=== PATIENT | male | born 1950 | race Caucasian/White ===

== ENCOUNTER 2018-01-11 14:44 | Emergency (ER) | payer OTHER ==
[2018-01-11 15:57] LABS: BASO # 0.1 10^3/uL (0.0-0.2); EOS # 0.3 10^3/uL (0.0-0.50); EOS % 3.5 % (0.0-3.0); HEMATOCRIT 41.1 % (42.0-52.0); IMMATURE GRANULOCYTE % 1.4 % (0-3.0); LYMPH % 27.2 % (24.0-44.0); MEAN CORPUSCULAR HEMOGLOBIN 31.5 pg (27.0-33.0); MEAN CORPUSCULAR HGB CONC 34.1 g/dl (32.0-36.5); MEAN CORPUSCULAR VOLUME 92.6 fl (80.0-96.0); MONO # 0.9 10^3/uL (0.0-0.8); MONO % 12.2 % (0.0-5.0); NEUTROPHILS # 3.9 10^3/uL (1.8-7.7); NEUTROPHILS % 54.7 % (36.0-66.0); PLATELET COUNT, AUTOMATED 255 10^3/uL (150-450); RED BLOOD COUNT 4.44 10^6/uL (4.30-6.10); RED CELL DISTRIBUTION WIDTH 11.9 % (11.5-14.5); WHITE BLOOD COUNT 7.2 10^3/uL (4.0-10.0)
[2018-01-11 16:11] LABS: ALBUMIN 3.9 GM/DL (3.2-5.2); ALBUMIN/GLOBULIN RATIO 0.98 (1.00-1.93); ALKALINE PHOSPHATASE 84 U/L (45-117); ALT/SGPT 36 U/L (12-78); ANION GAP 5 MEQ/L (8-16); AST/SGOT 19 U/L (7-37); BILIRUBIN,DIRECT < 0.1 MG/DL (0.0-0.2); BILIRUBIN,TOTAL 0.2 MG/DL (0.2-1.0); BLOOD UREA NITROGEN 23 MG/DL (7-18); CALCIUM LEVEL 8.9 MG/DL (8.8-10.2); CARBON DIOXIDE LEVEL 29 MEQ/L (21-32); CHLORIDE LEVEL 104 MEQ/L (98-107); CK-MB VALUE MASS < 1.0 NG/ML (<3.6); CPK CREATINE PHOSPHOKINASE 84 U/L (39-308); CREATININE FOR GFR 1.13 MG/DL (0.70-1.30); GLOMERULAR FILTRATION RATE > 60.0 (>49); GLUCOSE, FASTING 103 MG/DL (70-100); LIPASE 206 U/L (73-393); MB/CK RELATIVE INDEX 1.19 (< OR =4); POTASSIUM SERUM 4.2 MEQ/L (3.5-5.1); SODIUM LEVEL 138 MEQ/L (136-145); TOTAL PROTEIN 7.9 GM/DL (6.4-8.2); TROPONIN I < 0.02 NG/ML (< 0.10)
== END 2018-01-11 17:14 | disposition home or self-care (01) ==
LOC: M ED 14:44
DX: R07.89 Other chest pain (principal); I10 Essential (primary) hypertension; E78.5 Hyperlipidemia, unspecified; Z79.82 Long term (current) use of aspirin; Z79.899 Other long term (current) drug therapy
CPT/HCPCS: 71045

== ENCOUNTER 2019-12-08 09:12 | Emergency (ER) | payer MEDICARE, OTHER ==
[~2019-12-08] VITALS: Ht 185.4 cm; Wt 111.4 kg
[~2019-12-08 09:12] MED LIST: ASPI81TA85 PO; ASPI81TAEC PO; FINA5TAB2 PO; FISH1000 PO; FISH7.5C PO; LISI40TA PO; PANT40TA3 PO; PRAV10TA4 PO; PROT1TAB2 PO; SILD100T PO; VITA2000 PO; VITA200016 PO
[2019-12-08] MEDS ORDERED: PRAV40TA2 PO (09:33)
[2019-12-08] MEDS ORDERED: ONDANSETRON 4MG/2ML VIAL IV ONE (09:45)
[2019-12-08 10:09] LABS: BASO # 0.1 10^3/uL (0.0-0.2); BASO % 1.5 % (0.0-1.0); EOS # 0.2 10^3/uL (0.0-0.5); EOS % 3.8 % (0.0-3.0); HEMATOCRIT 40.8 % (42.0-52.0); HEMOGLOBIN 13.7 g/dl (13.5-17.5); LYMPH # 1.8 10^3/uL (1.5-5.0); LYMPH % 33.7 % (24.0-44.0); MEAN CORPUSCULAR HGB CONC 33.6 g/dl (32.0-36.5); MEAN CORPUSCULAR VOLUME 95.3 fl (80.0-96.0); MONO # 0.8 10^3/uL (0.0-0.8); MONO % 15.2 % (0.0-5.0); NEUTROPHILS # 2.4 10^3/uL (1.5-8.5); NEUTROPHILS % 44.9 % (36.0-66.0); PLATELET COUNT, AUTOMATED 248 10^3/uL (150-450); RED BLOOD COUNT 4.28 10^6/uL (4.30-6.10); WHITE BLOOD COUNT 5.3 10^3/uL (4.0-10.0)
[2019-12-08] MEDS: GASTROGRAFIN SOLUTION 30ML PO SCH ×2 (10:11→11:02)
[2019-12-08 10:20] LABS: INR 1.06; PROTHROMBIN TIME 13.5 SECONDS (11.8-14.0)
[2019-12-08 10:37] LABS: ALBUMIN 3.7 GM/DL (3.2-5.2); ALT/SGPT 46 U/L (12-78); BILIRUBIN,DIRECT 0.1 MG/DL (0.0-0.2); BILIRUBIN,TOTAL 0.5 MG/DL (0.2-1.0); BLOOD UREA NITROGEN 17 MG/DL (7-18); CALCIUM LEVEL 9.5 MG/DL (8.8-10.2); CARBON DIOXIDE LEVEL 29 MEQ/L (21-32); CHLORIDE LEVEL 104 MEQ/L (98-107); CREATININE FOR GFR 1.07 MG/DL (0.70-1.30); GLOMERULAR FILTRATION RATE > 60.0 (>49); GLUCOSE, FASTING 113 MG/DL (70-100); POTASSIUM SERUM 4.4 MEQ/L (3.5-5.1); SODIUM LEVEL 139 MEQ/L (136-145); TOTAL PROTEIN 7.3 GM/DL (6.4-8.2)
[2019-12-08 12:56] VITALS: BP 153/83
--- NOTE | 2019-12-08 14:33 | REP ---
CT ABDOMEN/PELVIS WITH ORAL CONTRAST: CT abdomen/pelvis performed following administrations of oral contrast material. IV contrast was not administered. Sagittal and coronal reconstruction images are performed. Minimal fibrotic changes are seen in the visualized lung bases. The liver demonstrates two hypodensities, probably representing cysts, one in the right lobe and one in the left lobe, measuring up to 1.9 cm in diameter. The patient has had a prior cholecystectomy. There is no biliary dilatation. There are calcified granulomas in the spleen. The adrenal glands are normal. No gross pancreatic abnormality or renal abnormality is seen. There is no renal or ureteral calculus and no hydroureteronephrosis. There is mild atherosclerotic calcification of the abdominal aorta with no aneurysm. There is no adenopathy. There is no free air or free fluid. There is no bowel wall thickening or inflammation. There is no pelvic mass. Urinary bladder is mildly distend and grossly unremarkable. There is a tiny umbilical hernia containing noninflamed fat. There is a small left inguinal hernia containing noninflamed fat. The appendix is normal. IMPRESSION: Tiny umbilical hernia containing noninflamed fat. Small left inguinal hernia containing noninflamed fat. No acute abnormalities. Electronically Signed by Venkata Conn MD 12/11/2019 09:56 P
== END 2019-12-08 13:02 | disposition home or self-care (01) ==
LOC: M ED 09:12
DX: K40.90 Unilateral inguinal hernia, without obstruction or gangrene, not specified as recurrent (principal); K42.9 Umbilical hernia without obstruction or gangrene; K21.9 Gastro-esophageal reflux disease without esophagitis; I11.9 Hypertensive heart disease without heart failure; F17.200 Nicotine dependence, unspecified, uncomplicated; Z79.82 Long term (current) use of aspirin; Z79.899 Other long term (current) drug therapy; Z82.49 Family history of ischemic heart disease and other diseases of the circulatory system
CPT/HCPCS: 74176; 80048; 80076; 85025; 85610; 94760; 96374; 99284; J2405; Q9963

== ENCOUNTER 2020-01-02 21:46 | Emergency (ER) | payer MEDICARE, OTHER ==
[~2020-01-02] VITALS: Ht 185.4 cm; Wt 107.7 kg
[~2020-01-02 21:46] MED LIST changes: +PRAV40TA2 PO
[2020-01-02] MEDS ORDERED: ACETAMINOPHEN 325 MG TAB PO ONE (22:45)
--- NOTE | 2020-01-02 23:58 | REPVR ---
PROCEDURE INFORMATION: Exam: CT Right Lower Extremity Without Contrast, Ankle Exam date and time: 01/02/2020 11:26 PM Age: 69 years old Clinical indication: Injury or trauma; Fall; Initial encounter; Fracture, traumatic; Nondisplaced; Right calcaneus fracture not specified; Additional info: Calcaneal FX, no contrast pls TECHNIQUE: Imaging protocol: CT of the Right lower extremity without contrast was performed. Exam focused on the ankle. Radiation optimization: All CT scans at this facility use at least one of these dose optimization techniques: automated exposure control; mA and/or kV adjustment per patient size (includes targeted exams where dose is matched to clinical indication); or iterative reconstruction. COMPARISON: 1. CR Ankle, complete RIGHT 01/02/2020 10:37 PM (report not provided) 2. CR - Os Calcis RIGHT 01/02/2020 10:37:53 PM (report not provided) FINDINGS: Bones/joints: Acute comminuted fracture again involves the calcaneus. Fracture lines extend to the proximal posterior, plantar, medial and lateral cortices, with displacement up to 5 mm, 4 mm, 6 mm and 7 mm, respectively. There is involvement of the posterior subtalar joint, extending obliquely from its proximal medial to distal lateral aspects, with a few tiny fracture fragments along the proximal and distal margins of the joint. Nondisplaced fracture line extends to the margin of the sinus tarsi, without definite involvement of the mid subtalar joint. Distal extension of the fracture does not appear to reach the calcaneocuboid joint. A small fragment along the anterior process of the talus appears corticated, and could relate to remote, rather than acute injury. No fracture is identified elsewhere. The joint spaces are normally aligned. There are small plantar and posterior calcaneal enthesophytes. Very mild osteophyte formation is present about the tibiotalar joint, and along the distal aspect of the lateral malleolus. Soft tissues: There is soft tissue swelling about much of the ankle, more pronounced laterally than posteriorly and medially. No well-formed hematoma is identified. IMPRESSION: Acute comminuted calcaneal fracture. Electronically signed by: Chris Peñaloza On 01/02/2020 23:58:24 PM
[2020-01-03 00:35] VITALS: BP 132/70
--- NOTE | 2020-01-03 08:09 | REP ---
Clinical: Trauma. Technique: AP and axial views of the right calcaneus. Findings: Comminuted fracture of the calcaneus noted with overlying soft tissue swelling. Impression: Comminuted fracture of the right calcaneus. Electronically Signed by Kenneth Stoddard MD 01/03/2020 08:00 A
--- NOTE | 2020-01-03 08:09 | REP ---
Clinical: Trauma. Technique: AP, lateral, bilateral oblique views of the right ankle. Findings: Significant swelling primarily over the lateral malleolus is consistent with inversion injury. There is a comminuted fracture of the calcaneus best identified on lateral radiograph. Impression: 1. Comminuted fracture of the calcaneus. 2. Swelling. Electronically Signed by Kenneth Stoddard MD 01/03/2020 07:59 A
== END 2020-01-03 00:38 | disposition home or self-care (01) ==
LOC: M ED 21:46
DX: S92.001A Unspecified fracture of right calcaneus, initial encounter for closed fracture (principal); X58.XXXA Exposure to other specified factors, initial encounter; Y92.830 Public park as the place of occurrence of the external cause; Y93.89 Activity, other specified; Y99.9 Unspecified external cause status; I10 Essential (primary) hypertension; E78.5 Hyperlipidemia, unspecified; K58.9 Irritable bowel syndrome, unspecified; Z79.82 Long term (current) use of aspirin; Z79.899 Other long term (current) drug therapy

== ENCOUNTER 2020-02-10 04:07 | Emergency (ER) | payer MEDICARE, OTHER ==
[~2020-02-10 04:07] MED LIST changes: -ASPI81TA85 PO; +ASPI81TA86 PO; +PANT40TA29 PO; -PANT40TA3 PO
[2020-02-10] MEDS ORDERED: ISOVUE-370 76% 100ML VIAL As Ordered ONE (10:47)
[2020-02-10] MEDS ORDERED: dexameTHASONE 20MG/5ML VIAL (J1100 PER 1MG) As Ordered ONE (13:25)
[2020-02-10] MEDS ORDERED: dexameTHASONE 20MG/5ML VIAL (J1100 PER 1MG) ONE (13:25)
--- NOTE | 2020-03-21 13:55 | ECGEPIP ---
SINUS BRADYCARDIA BORDERLINE ECG SEE SCANNED DOWNTIME REPORT MTDD
[2020-03-28 11:33] LABS: INR 1.01; PARTIAL THROMBOPLASTIN TIME 38.3 SECONDS (24.2-38.5); PROTHROMBIN TIME 13.5 SECONDS (12.5-14.3)
[2020-03-28 17:17] LABS: BASO # 0.1 10^3/uL (0.0-0.2); EOS # 0.2 10^3/uL (0.0-0.5); EOS % 2.3 % (0.0-3.0); HEMATOCRIT 39.3 % (42.0-52.0); HEMOGLOBIN 13.3 g/dl (13.5-17.5); LYMPH # 1.8 10^3/uL (1.5-5.0); LYMPH % 25.1 % (24.0-44.0); MEAN CORPUSCULAR HEMOGLOBIN 32.2 pg (27.0-33.0); MEAN CORPUSCULAR HGB CONC 33.8 g/dl (32.0-36.5); MEAN CORPUSCULAR VOLUME 95.2 fl (80.0-96.0); MONO # 0.7 10^3/uL (0.0-0.8); MONO % 9.8 % (0.0-5.0); NEUTROPHILS # 4.3 10^3/uL (1.5-8.5); NEUTROPHILS % 61.2 % (36.0-66.0); PLATELET COUNT, AUTOMATED 283 10^3/uL (150-450); RED BLOOD COUNT 4.13 10^6/uL (4.30-6.10); WHITE BLOOD COUNT 7.1 10^3/uL (4.0-10.0)
[2020-04-30 18:58] LABS: ALBUMIN 4.1 GM/DL (3.2-5.2); ALT/SGPT 28 U/L (12-78); BILIRUBIN,TOTAL 0.6 MG/DL (0.2-1.0); BLOOD UREA NITROGEN 15 MG/DL (7-18); CALCIUM LEVEL 9.8 MG/DL (8.8-10.2); CARBON DIOXIDE LEVEL 29 MEQ/L (21-32); CHLORIDE LEVEL 103 MEQ/L (98-107); CK-MB VALUE MASS < 1.0 NG/ML (<3.6); CPK CREATINE PHOSPHOKINASE 64 U/L (39-308); CREATININE FOR GFR 1.25 MG/DL (0.70-1.30); GLOMERULAR FILTRATION RATE > 60.0 (>49); GLUCOSE, FASTING 113 MG/DL (70-100); MB/CK RELATIVE INDEX 1.56 (< OR =4); NT-PRO BNP 120 PG/ML (<125); POTASSIUM SERUM 3.9 MEQ/L (3.5-5.1); SODIUM LEVEL 139 MEQ/L (136-145); THYROID STIMULATING HORMONE 0.929 uIU/ML (0.358-3.740); TOTAL PROTEIN 7.8 GM/DL (6.4-8.2); TROPONIN I < 0.02 NG/ML (< 0.10)
== END 2020-02-10 13:30 | disposition home or self-care (01) ==
LOC: M ED 04:07
DX: R06.02 Shortness of breath (principal); R91.8 Other nonspecific abnormal finding of lung field; I77.810 Thoracic aortic ectasia; R00.1 Bradycardia, unspecified; I10 Essential (primary) hypertension; E78.5 Hyperlipidemia, unspecified; K21.9 Gastro-esophageal reflux disease without esophagitis; Z79.899 Other long term (current) drug therapy
CPT/HCPCS: 71046; 71275; 80053; 82550; 82553; 83880; 84443; 84484; 85025; 85610; 85730; 87040; 93005; 96374; 99284; J1100; Q9967

== ENCOUNTER → 2021-04-11 | Outpatient (CLI) | payer MEDICARE, OTHER ==
[~2021-04-11] MED LIST changes: +ASPI-569 PO; -ASPI81TAEC PO; +ISOVUE-300 61% 50ML VIAL As Ordered ONE; +LIDOCAINE 1% MDV 20ML VIAL As Ordered ONE; -LISI40TA PO; +LISI40TA4 PO; +methylPREDNISolone SUSP 40MG/ML 1ML VIAL (DEPO MEDROL) As Ordered ONE
--- NOTE | 2021-04-11 16:17 | REP ---
INDICATION: OA RT ANKLE. COMPARISON: None. TECHNIQUE: The procedure was performed under the direct supervision of Dr. Daniels. The benefits and risks including but not limited to pain infection bleeding and anaphylaxis were explained to the patient and informed consent was obtained. The right subtalar joint space was localized using fluoroscopic guidance. The skin was prepped and draped in a sterile fashion. 1% lidocaine was used as a local anesthetic. Using fluoroscopic guidance, and last image hold technology, a 25 gauge needle was inserted and advanced into the joint. 0.5 mL of Isovue-300 was injected to verify placement. 3 mL of a solution containing 2 mL of 1% lidocaine and 1 mL of Depo-Medrol 40 mg was injected. The needle was then removed. The patient tolerated the procedure well and there were no immediate complications. Less than 6 seconds of fluoroscopy time was utilized for this procedure. FINDINGS: None IMPRESSION: Fluoro guidance for right subtalar joint injection. <Electronically signed by Franklyn Olivares > 04/11/21 1503 <Electronically signed by Glenn Daniels > 04/11/21 1610
== END ==
LOC: M RADPRO 13:07
PROVIDERS: ATTEND Physician Assistant
DX: M19.271 Secondary osteoarthritis, right ankle and foot (principal)
CPT/HCPCS: 20605; 77002; J1030; Q9967

== ENCOUNTER → 2021-08-04 | Outpatient (CLI) | payer MEDICARE | LOC: M RADPRO 10:43 | PROVIDERS: ATTEND Physician Assistant | DX: M76.71 Peroneal tendinitis, right leg (principal) | CPT/HCPCS: 20605; 77002; J1030; Q9967 ==

== ENCOUNTER → 2022-01-23 | Outpatient (CLI) | payer MEDICARE ==
[~2022-01-23] MED LIST changes: -ISOVUE-300 61% 50ML VIAL As Ordered ONE; +ISOVUE-300 61% 5ML SYRINGE As Ordered ONE
== END ==
LOC: M RADPRO 15:06
PROVIDERS: ATTEND Physician Assistant
DX: M19.171 Post-traumatic osteoarthritis, right ankle and foot (principal)
CPT/HCPCS: 20605; 76000; J1030; Q9967

== ENCOUNTER → 2022-04-27 | Outpatient (CLI) | payer MEDICARE ==
[~2022-04-27] MED LIST changes: +FISH10005 PO; -FISH7.5C PO; +ISOVUE-300 61% 50ML VIAL ONE; -ISOVUE-300 61% 5ML SYRINGE As Ordered ONE; -LIDOCAINE 1% MDV 20ML VIAL As Ordered ONE; +LIDOCAINE 1% MDV 20ML VIAL ONE; -methylPREDNISolone SUSP 40MG/ML 1ML VIAL (DEPO MEDROL) As Ordered ONE; +methylPREDNISolone SUSP 40MG/ML 1ML VIAL (DEPO MEDROL) ONE
== END ==
LOC: M RADPRO 13:15 → M PLAIMG 13:15
PROVIDERS: ATTEND Physician Assistant
DX: M19.171 Post-traumatic osteoarthritis, right ankle and foot (principal)
CPT/HCPCS: 20605; 76000; J1030; Q9967

== ENCOUNTER → 2022-08-10 | Outpatient (CLI) | payer MEDICARE, OTHER ==
[~2022-08-10] MED LIST changes: +**SFHN** LIDOCAINE 1% MDV 20ML VIAL ONE; +**SFHN** methylPREDNISolone 40MG 1ML VIAL ONE; +ISOVUE-300 61% 100ML VIAL ONE; -ISOVUE-300 61% 50ML VIAL ONE; -LIDOCAINE 1% MDV 20ML VIAL ONE; -methylPREDNISolone SUSP 40MG/ML 1ML VIAL (DEPO MEDROL) ONE
== END ==
LOC: M PLAIMG 13:04
PROVIDERS: ATTEND Physician Assistant
DX: M19.171 Post-traumatic osteoarthritis, right ankle and foot (principal)
CPT/HCPCS: 20605; 76000; J2920; Q9967

== ENCOUNTER → 2022-11-18 | Outpatient (CLI) | payer MEDICARE ==
[~2022-11-18] MED LIST changes: -**SFHN** LIDOCAINE 1% MDV 20ML VIAL ONE; -**SFHN** methylPREDNISolone 40MG 1ML VIAL ONE; +LIDOCAINE 1% MDV 20ML VIAL ONE; +methylPREDNISolone SUSP 40MG/ML 1ML VIAL (DEPO MEDROL) ONE
== END ==
LOC: M PLAIMG 16:07
PROVIDERS: ATTEND Physician Assistant
DX: M19.171 Post-traumatic osteoarthritis, right ankle and foot (principal)
CPT/HCPCS: 20605; 77002; J1030; Q9967

== ENCOUNTER → 2024-05-11 | Outpatient (REF) ==
[~2024-05-11] MED LIST changes: -ISOVUE-300 61% 100ML VIAL ONE; -LIDOCAINE 1% MDV 20ML VIAL ONE; -methylPREDNISolone SUSP 40MG/ML 1ML VIAL (DEPO MEDROL) ONE
== END ==
LOC: M PLAIMG 10:24
PROVIDERS: ATTEND Nurse Practitioner Family
DX: R01.1 Cardiac murmur, unspecified (principal); I10 Essential (primary) hypertension